=== PATIENT | male | born 1975 | race Caucasian/White ===

== ENCOUNTER 2016-12-22 20:42 | Emergency (ER) | payer OTHER ==
[~2016-12-22] VITALS: Ht 182.9 cm; Wt 95.3 kg
[2016-12-22 21:00] VITALS: BP 187/118
== END 2016-12-22 22:40 | disposition home or self-care (01) ==
LOC: ER 20:46
DX: S76.012A Strain of muscle, fascia and tendon of left hip, initial encounter (principal); V43.62XA Car passenger injured in collision with other type car in traffic accident, initial encounter; Y93.89 Activity, other specified; Y99.8 Other external cause status; Y92.89 Other specified places as the place of occurrence of the external cause
CPT/HCPCS: 73700